=== PATIENT | female | born 1990 | race Caucasian/White ===

== ENCOUNTER 2017-08-08 18:15 | Emergency (ER) | payer BC ==
[~2017-08-08] VITALS: Ht 170.2 cm; Wt 59.0 kg
[2017-08-08 18:18] VITALS: Ht 170.2 cm; Wt 59.0 kg
[2017-08-08 21:26] VITALS: BP 112/73
== END 2017-08-08 22:32 | disposition home or self-care (01) ==
LOC: ED 18:15
DX: S16.1XXA Strain of muscle, fascia and tendon at neck level, initial encounter (principal); S29.011A Strain of muscle and tendon of front wall of thorax, initial encounter; S80.11XA Contusion of right lower leg, initial encounter; V43.52XA Car driver injured in collision with other type car in traffic accident, initial encounter; Y93.I9 Activity, other involving external motion; Y92.488 Other paved roadways as the place of occurrence of the external cause; Y99.8 Other external cause status; Z88.0 Allergy status to penicillin; Z88.1 Allergy status to other antibiotic agents; Z91.041 Radiographic dye allergy status; Z88.2 Allergy status to sulfonamides
CPT/HCPCS: 72072; J1885; J3010